=== PATIENT | female | born 1970 | race American Indian/Alaskan Native ===

== ENCOUNTER 2017-09-07 09:37 | Emergency (ER) | payer BC ==
--- NOTE | 2017-09-07 10:05 | Emergency Department Report ---
Chief Complaint: Chest Pain Stated Complaint: CHEST PAIN/SOB/ELEVATED B/P - HPI History of Present Illness: 47 year old female presents to ED with left sided chest pain, mild SOB and dry cough since 630am this morning. patient has history of HTN. - ROS Review of Systems: see HPI - Exam Physical Exam: General: no acute distress Cardiac: MSE screening note: Focused history and physical exam performed. Due to findings the following was ordered: ED Medical Decision Making - Medical Decision Making patient is stable, neurologically intact and in no acute distress. patient will have bloodwork, CXR and EKG ordered. ED Disposition for MSE Condition: Stable
[2017-09-07 10:30] LABS: Basophils % (Auto) 0.5 % (0.0-1.8); Eosinophils % (Auto) 1.6 % (0.0-4.3); Hematocrit 41.6 % (30.3-42.9); Hemoglobin 13.3 gm/dl (10.1-14.3); Mean Corpuscular HGB Conc 32 % (30-34); Mean Corpuscular Hemoglobin 28 pg (28-32); Mean Corpuscular Volume 86 fl (79-97); Platelet Count 238 K/mm3 (140-440); Red Blood Count 4.82 M/mm3 (3.65-5.03); Red Cell Distribution Width 13.9 % (13.2-15.2); White Blood Count 6.7 K/mm3 (4.5-11.0)
--- NOTE | 2017-09-07 10:37 | XRay Report ---
ROUTINE CHEST, TWO VIEWS: HISTORY: Shortness of breath. The trachea, heart, mediastinal contour, lung green and bony thorax are unremarkable. IMPRESSION: Unremarkable chest x-ray.
[2017-09-07 10:53] LABS: Anion Gap 15 mmol/L; BUN/Creatinine Ratio 14; Blood Urea Nitrogen 10 mg/dL (7-17); Carbon Dioxide 26 mmol/L (22-30); Chloride 103.3 mmol/L (98-107); Glucose 95 mg/dL (65-100); Potassium 3.7 mmol/L (3.6-5.0); Sodium 141 mmol/L (137-145)
== END 2017-09-07 11:45 | disposition left against medical advice (07) ==
LOC: ED 09:37
DX: R07.89 Other chest pain (principal); Z53.21 Procedure and treatment not carried out due to patient leaving prior to being seen by health care provider
CPT/HCPCS: 36415; 71020; 80048; 83690; 84484; 84703; 85025; 93005; 93010; 99284